=== PATIENT | female | born 1980 | race Caucasian/White ===

== ENCOUNTER 2021-06-02 22:40 | Day surgery (SDCO) | payer OTHER ==
[~2021-06-02] VITALS: Ht 167.6 cm; Wt 119.0 kg
[2021-06-03 00:13] LABS: CORONAVIRUS 2019 SARS-COV-2 NEGATIVE (NEGATIVE); INFLUENZA A NAA NEGATIVE (NEGATIVE)
[2021-06-03 01:57] LABS: BASOPHIL 1.3 % (0-2); EOSINOPHIL 1.5 % (0-5); HCT 42.3 % (37.0-47.0); HGB 13.9 g/dl (12.5-16.0); LYMPHOCYTE 45.4 % (15-48); MCH 28.2 pg (25.0-31.0); MCHC 32.9 g/dL (32.0-36.0); MCV 85.8 fL (78.0-100.0); MONOCYTE 10.7 % (0-12); MPV 9.9 fL (6.0-9.5); NRBC 0; PLT 181 K/uL (150-400); RBC 4.93 M/uL (4.20-5.40); RDW 13.3 % (11.5-14.0)
[2021-06-03 02:20] LABS: WBC 5.3 K/uL (4.0-10.5)
[2021-06-03 02:40] LABS: BUN/CREAT RATIO (CALC) 13.1 RATIO; CREATININE 0.61 mg/dL (0.51-0.95); POTASSIUM 3.7 mmol/L (3.5-5.1)
[2021-06-03 10:57] LABS: INR 0.98 (0.9-1.2); PROTHROMBIN TIME 12.4 SECONDS (11.8-13.4); PTT 30.8 SECONDS (24.4-34.7)
[2021-06-03 14:28] LABS: CLARITY (FLUID) CLEAR; COLOR (FLUID) COLORLESS
[2021-06-03 14:40] LABS: RBC (FLUID) 1 RBC/uL; WBC (FLUID) 0 WBC/uL
[2021-06-03] MEDS ORDERED: NORCO 5-325 TA1 EACH PO (18:11)
== END 2021-06-03 18:00 | disposition home or self-care (01) ==
LOC: FER 22:40 → FMS 06-03 05:12
PROVIDERS: Internal Medicine; Nurse Practitioner Acute Care; ADMIT Internal Medicine
DX: G43.901 Migraine, unspecified, not intractable, with status migrainosus (principal); Z90.49 Acquired absence of other specified parts of digestive tract; E66.9 Obesity, unspecified; F17.210 Nicotine dependence, cigarettes, uncomplicated; Z20.822 Contact with and (suspected) exposure to COVID-19; Z68.41 Body mass index [BMI] 40.0-44.9, adult
CPT/HCPCS: 36415; 70460; 80048; 82945; 84145; 84155; 85025; 85610; 85730; 87040; 87070; 87205; 89051; 96365; 96368; 96375; G0378; J0696; J0780; J1100; J1170; J1885; J2060; J3370; J7040; J7050; Q9967; U0002